=== PATIENT | male | born 2000 | race Hispanic/Latino ===

== ENCOUNTER 2023-06-20 11:43 | Emergency (ER) | payer SELFPAY ==
[~2023-06-20] VITALS: Ht 170.2 cm; Wt 60.3 kg
[2023-06-20 11:53] VITALS: BP 138/92; PULSE 65; RESP 18; TEMP 98.2; O2SAT 99
--- NOTE | 2023-06-20 12:38 | DIREP ---
PROCEDURE:CHEST 1 VIEW COMPARISON:None. INDICATIONS:SOB FINDINGS: LUNGS/PLEURA:No significant pulmonary parenchymal abnormalities. No effusions. No pneumothorax. VASCULATURE:Normal. Unremarkable pulmonary vasculature. CARDIAC:Normal. No cardiac silhouette abnormality or cardiomegaly. MEDIASTINUM:Normal. No visible mass or adenopathy. BONES:Normal. No fracture or visible bony lesion. OTHER:Negative. CONCLUSION:Normal examination. Dictated by: Joseph Polo M.D. on 06/20/2023 at 12:37 PM
[2023-06-20 12:44] LABS: BASOPHIL # 0.1 10^3/uL (0.0-0.1); BASOPHIL % 0.5 % (0.0-0.2); EOSINOPHIL # 0.3 10^3/uL (0.0-0.2); EOSINOPHIL % 2.6 % (0.0-5.0); LYMPHOCYTES # 1.75 10^3/uL1 (1.0-4.8); LYMPHOCYTES % 15.8 % (24.0-44.0); MONOCYTES # 0.7 10^3/uL (0.3-0.8); MONOCYTES % 6.6 % (5.0-12.0); NEUTROPHIL # 8.2 10^3/uL (1.8-7.7); NEUTROPHILS % 74.1 % (41.0-85.0); PLATELET COUNT 165 10^3/uL (150-400); RED CELL DISTRIBUTION WIDTH 12.8 % (11.5-14.5)
--- NOTE | 2023-06-20 12:59 | PCM.EKG ---
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
[2023-06-20 13:05] LABS: CARBON DIOXIDE 32.4 mmol/L (20.0-32); GLUCOSE 101 mg/dL (74-106)
--- NOTE | 2023-06-20 13:44 | ER.PDOC ---
General Chief Complaint: General Complaint Stated Complaint: SOB Time seen by MD: 13:00 Source: patient Exam Limitations: no limitations History of Present Illness Initial Comments Shortness of breath today. He also has numbness and tingling of both hands and feet. She can feel her heart beating fast. She was seen in [place] 3 days ago for the same presentation and told that he has anxiety. No chest pain. Severity: moderate Activities at Onset: emotional stress Prior Episodes/Possible Cause: occasional episodes Associated Symptoms: anxiety Past Medical History Medical History: GERD Surgical History: no surgical history Family History Significant Family History: no pertinent family hx Social History Smoking: non-smoker Alcohol Use: occassionally Drug Use: none Review of Systems Constitutional: no symptoms reported EENTM: no symptoms reported Respiratory: see HPI Cardiovascular: no symptoms reported Gastrointestinal: no symptoms reported All Other Systems: Reviewed and Negative Physical Exam General Appearance: Anxious HEENT: PERRL/EOMI, Normal ENT Inspection, TMs Normal, Pharynx Normal Neck: Non-Tender, Full Range of Motion, Supple, Normal Inspection Respiratory: chest non-tender, lungs clear, normal breath sounds, no re spiratory distress, no accessory muscle use Cardiovascular: Normal Peripheral Pulses, Regular Rate, Rhythm, No Edema, No Gallop, No JVD, No Murmur Gastrointestinal: Normal Bowel Sounds, No Organomegaly, No Pulsatile Mass, Non Tender, Soft Extremities: Normal Range of Motion, Non-Tender, Normal Inspection, No Pedal Ed harriett, No Calf Tenderness, Normal Capillary Refill Neurologic/Psychiatric: coke burner II-XII NML as Tested, No Motor/Sensory Deficits, Alert, Normal Mood/Affect, Oriented x 3 Skin: Normal Color, Warm/Dry Lymphatic: No Adenopathy Results/Orders Results/Orders Orders - WILEY MOORE MD EKG (06/20/23 12:21) Xr Chest 1v (06/20/23 12:21) Cbc With Auto Diff (06/20/23 12:21) Comprehensive Metabolic Panel (06/20/23 12:21) D-Dimer (06/20/23 12:21) Troponin I High Sensitivity (06/20/23 12:21) Vital Signs Date Time Temp Pulse Resp B/P (MAP) Pulse Ox O2 Delivery O2 Flow Rate FiO2 06/20/23 11:53 98.2 65 18 06/20/23 11:53 98.2 65 18 99 Laboratory Tests Test 06/20/23 12:36 White Blood Count 11.1 10^3/uL (4.5-11.0) H Red Blood Count 5.46 10^6/uL (4.50-5.90) Hemoglobin 16.4 g/dL (13.9-16.3) H Hematocrit 48.6 % (37.0-53.0) Mean Corpuscular Volume 89.0 fL (78-100) Mean Corpuscular Hemoglobin 30.0 pg (26-34) Mean Corpuscular Hemoglobin Concent 33.7 g/dL (33-36.5) Red Cell Distribution Width 12.8 % (11.5-14.5) Platelet Count 165 10^3/uL (150-400) Mean Platelet Volume 12.8 fL (7.8-11.0) H Neutrophils (%) (Auto) 74.1 % (41.0-85.0) Lymphocytes (%) (Auto) 15.8 % (24.0-44.0) L Monocytes (%) (Auto) 6.6 % (5.0-12.0) Neutrophils # (Auto) 8.2 10^3/uL (1.8-7.7) H Lymphocytes # (Auto) 1.75 10^3/uL1 (1.0-4.8) Monocytes # (Auto) 0.7 10^3/uL (0.3-0.8) Absolute Immature Granulocyte (auto 0.04 10^3 u/L (0-2) Absolute Eosinophils (auto) 0.3 10^3/uL (0.0-0.2) H Immature Granulocytes % 0.40 % (0.00-0.50) Eosinophils % 2.6 % (0.0-5.0) Basophils % 0.5 % (0.0-0.2) H Basophils # 0.1 10^3/uL (0.0-0.1) D-Dimer 0.20 mg/L (0.19-0.49) Sodium Level 139 mmol/L (132-145) Potassium Level 4.0 mmol/L (3.6-5.2) Chloride Level 100.0 mmol/L (96-109) Carbon Dioxide Level 32.4 mmol/L (20.0-32) H Anion Gap 10.6 Blood Urea Nitrogen 13 mg/dL (7-18) Creatinine 0.91 mg/dL (0.59-1.40) Estimated GFR () 127.3 (>/=60) Est GFR (CKD-EPI)(Non-Afr [place]) 105.2 (>/=60) BUN/Creatinine Ratio 14.0 (10.0-20.0) Glucose Level 101 mg/dL (74-106) Calcium Level 9.9 mg/dL (8.4-10.5) Total Bilirubin 0.5 mg/dL (0.2-1.0) Aspartate Amino Transferase (AST) 20 U/L (0-35) Alanine Aminotransferase (ALT) 16 U/L (12-78) Alkaline Phosphatase 68 U/L (50-136) Troponin I High Sensitivity < 4 ng/L (0-75) Total Protein 8.5 g/dL (6.4-8.2) H Albumin 4.8 g/dL (3.4-5.0) Globulin 3.7 Albumin/Globulin Ratio 1.297 Progress Progress Chest x-ray: No acute abnormality CBC, chemistry, D-dimer and troponin normal. I reviewed results with the patient who voices understanding. I told her that she will need to follow-up with a primary care provider for continuation of care. His symptoms have since improved since he has been in the emergency room. EKG/XRAY/CT/US EKG: NSR EKG Comments: HR 64, normal P axis ER DEPART Departure Time of Disposition: 13:43 Disposition: 01 HOME / SELF CARE / HOMELESS Impression: Primary Impression: Anxiety Additional Impression: Panic attack Condition: Improved Referrals: PCP,UNKNOWN (PCP) PRIMARY CARE PROVIDER Additional Instructions: Hydroxyzine Follow-up with your PCP in 2 to 3 days Return to ED if worsening symptoms or concerns Duration or Time Spent with Pa: 30 min Problem Qualifiers WILEY MOORE MD Jun 20, 2023 13:44
== END 2023-06-20 13:56 | disposition home or self-care (01) ==
LOC: ER 11:43
DX: F41.0 Panic disorder [episodic paroxysmal anxiety] (principal); K21.9 Gastro-esophageal reflux disease without esophagitis
CPT/HCPCS: 36415; 71045; 80053; 84484; 85025; 85379; 93005; 99285